=== PATIENT | male | born 1975 | race Caucasian/White ===

== ENCOUNTER 2017-03-08 21:55 | Emergency (ER) | payer SELFPAY ==
[2017-03-08] MEDS ORDERED: Lidocaine/EPINEPHrine/Tetracaine Soln 5 ML Each TOP ONE (22:11)
[2017-03-08] MEDS ORDERED: Silver Nitrate Applicator Each TOP ONE (22:11)
--- NOTE | 2017-03-08 22:18 | EDM.PDOC ---
ED HPI GENERAL MEDICAL PROBLEM - General Chief Complaint: ENT Problem Stated Complaint: SEVERE NOSE BLEED, [phone] Time Seen by Provider: 03/08/17 22:13 Source of Information: Reports: Patient History Limitations: Reports: No Limitations - History of Present Illness INITIAL COMMENTS - FREE TEXT/NARRATIVE: states nose been bleeding past hour but has now stopped. 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 - Related Data Allergies Allergy/AdvReac Type Severity Reaction Status Date / Time No Known Allergies Allergy Verified 03/08/17 22:00 Home Meds: Home Meds Ibuprofen [Motrin] 200 mg PO ASDIRECTED 03/08/17 [History] Past Medical History HEENT History: Reports: None Cardiovascular History: Reports: None Respiratory History: Reports: None Gastrointestinal History: Reports: None Genitourinary History: Reports: None Musculoskeletal History: Reports: None Neurological History: Reports: None Psychiatric History: Reports: None Endocrine/Metabolic History: Reports: None Hematologic History: Reports: None Immunologic History: Reports: None Oncologic (Cancer) History: Reports: None Dermatologic History: Reports: None Social & Family History - Tobacco Use Smoking Status *Q: Heavy Tobacco Smoker Years of Tobacco use: 20 Packs/Tins Daily: 1.5 - Alcohol Use Days Per Week of Alcohol Use: 1 Number of Drinks Per Day: 2 Total Drinks Per Week: 2 - Recreational Drug Use Recreational Drug Use: No ED ROS ENT - Review of Systems Review Of Systems: ROS reveals no pertinent complaints other than HPI. ED EXAM, ENT - Physical Exam Exam: See Below Exam Limited By: No Limitations General Appearance: Alert, WD/WN, Anxious Nose: Dried Blood, Injected Turbinates. No: Active Bleeding Mouth/Throat: Normal Inspection, Normal Oropharynx Head: Atraumatic Neck: Non-Tender, Full Range of Motion Respiratory/Chest: No Respiratory Distress Cardiovascular: Regular Rate, Rhythm GI/Abdominal: Soft, Non-Tender Neurological: Alert, Oriented, Normal Cognition, Normal Gait, No Motor/Sensory Deficits Psychiatric: Anxious Skin: Warm, Dry, Normal Color Lymphatic: No Adenopathy ED ENT PROCEDURES - Epistaxis Procedure Indication: Uncontrolled Recent anticoagulants/antiplatlets: No Uncontrolled HTN: No Site of bleeding: Right Nare, Left Nare, Anterior Clearing of clots: Other Topical Meds: Other (LET) Ice pack to area: No Chemical cautery: Silver Nitrate Topical Anterior Packing: Other Electrical cautery: Other (silver nitrate) Post cautery: Other Complications: No Course - Vital Signs Last Recorded V/S: Last Vital Signs Temp 36.8 C 03/08/17 21:59 Pulse 87 03/08/17 21:59 Resp 20 03/08/17 21:59 BP 191/116 H 03/08/17 21:59 Pulse Ox 98 03/08/17 21:59 - Orders/Labs/Meds Meds: Medications Discontinued Medications Generic Name Dose Route Start Last Admin Trade Name Cecil PRN Reason Stop Dose Admin Hydrocodone Bitart/Acetaminophen 1 tab 03/08/17 22:42 03/08/17 22:46 [place] 325-10 Mg PO 03/08/17 22:43 1 tab ONETIME ONE Administration Lidocaine/Tetracaine 5 ml 03/08/17 22:11 03/08/17 22:24 Let Soln TOP 03/08/17 22:12 5 ml ONETIME ONE Administration Silver Nitrate 3 each 03/08/17 22:11 03/08/17 22:25 Silver Nitrate TOP 03/08/17 22:12 3 each ONETIME ONE Administration - Re-Assessments/Exams Free Text/Narrative Re-Assessment/Exam: 03/08/17 22:58 re-exam; s/p cautery feeling much better no further bleeding after 30 minutes Departure - Departure Time of Disposition: 22:58 Disposition: Home, Self-Care 01 Condition: Good Clinical Impression: Epistaxis - Discharge Information Instructions: Nosebleed, [id number] Forms: ED Department Discharge Additional Instructions: 1) don't pick or blow nose 2) don't take aspirin or motrin for 1 week 3) recheck as needed
[2017-03-08] MEDS ORDERED: Acetaminophen/HYDROcodone 325-10 MG Tab PO ONE (22:42)
== END 2017-03-08 23:02 | disposition home or self-care (01) ==
LOC: DL.ED 21:55
DX: R04.0 Epistaxis (principal); F17.210 Nicotine dependence, cigarettes, uncomplicated
CPT/HCPCS: 30901; 99283; A9270

== ENCOUNTER 2017-03-08 23:15 | Emergency (ER) | payer SELFPAY ==
--- NOTE | 2017-03-08 23:52 | EDM.PDOC ---
ED HPI GENERAL MEDICAL PROBLEM - General Chief Complaint: ENT Problem Stated Complaint: NOSEBLEED Time Seen by Provider: 03/08/17 23:49 Source of Information: Reports: Patient History Limitations: Reports: No Limitations - History of Present Illness INITIAL COMMENTS - FREE TEXT/NARRATIVE: just got into truck to leave and rebleed Nare Pain Score (Numeric/FACES): 7 - Related Data Allergies Allergy/AdvReac Type Severity Reaction Status Date / Time No Known Allergies Allergy Verified 03/08/17 23:15 Home Meds: Home Meds Ibuprofen [Motrin] 200 mg PO ASDIRECTED 03/08/17 [History] Past Medical History HEENT History: Reports: None Cardiovascular History: Reports: None Respiratory History: Reports: None Gastrointestinal History: Reports: None Genitourinary History: Reports: None Musculoskeletal History: Reports: None Neurological History: Reports: None Psychiatric History: Reports: None Endocrine/Metabolic History: Reports: None Hematologic History: Reports: None Immunologic History: Reports: None Oncologic (Cancer) History: Reports: None Dermatologic History: Reports: None Social & Family History - Tobacco Use Smoking Status *Q: Heavy Tobacco Smoker Years of Tobacco use: 20 Packs/Tins Daily: 1.5 - Alcohol Use Days Per Week of Alcohol Use: 1 Number of Drinks Per Day: 2 Total Drinks Per Week: 2 - Recreational Drug Use Recreational Drug Use: No ED ROS ENT - Review of Systems Review Of Systems: ROS reveals no pertinent complaints other than HPI. ED EXAM, ENT - Physical Exam Exam: See Below Exam Limited By: No Limitations General Appearance: Alert, WD/WN, Mild Distress, Other (nose bleed) Nose: Active Bleeding Mouth/Throat: Normal Inspection, Normal Oropharynx Head: Atraumatic Neck: Non-Tender, Full Range of Motion Respiratory/Chest: No Respiratory Distress Cardiovascular: Regular Rate, Rhythm GI/Abdominal: Soft, Non-Tender Neurological: Alert, Oriented, Normal Cognition, Normal Gait, No Motor/Sensory Deficits Psychiatric: Anxious Skin: Warm, Dry, Normal Color Lymphatic: No Adenopathy Course - Vital Signs Last Recorded V/S: Last Vital Signs Temp Pulse Resp 18 03/08/17 23:15 BP Pulse Ox Departure - Departure Time of Disposition: 23:51 Disposition: Home, Self-Care 01 Condition: Good Clinical Impression: Epistaxis - Discharge Information Forms: ED Department Discharge Additional Instructions: 1) have the nose packing remove tomorrow 2) recheck as need 3) avoid bending and straining
== END 2017-03-08 23:56 | disposition home or self-care (01) ==
LOC: DL.ED 23:15
DX: R04.0 Epistaxis (principal); F17.210 Nicotine dependence, cigarettes, uncomplicated
CPT/HCPCS: 99282

== ENCOUNTER 2017-03-09 14:37 | Emergency (ER) | payer SELFPAY ==
--- NOTE | 2017-03-09 16:14 | EDM.PDOC ---
ED HPI GENERAL MEDICAL PROBLEM - General Chief Complaint: ENT Problem Stated Complaint: EPISTAXIS [phone] Time Seen by Provider: 03/09/17 15:55 Source of Information: Reports: Patient History Limitations: Reports: No Limitations - History of Present Illness INITIAL COMMENTS - FREE TEXT/NARRATIVE: This 41 yo male patient reports to the ED due to having a bloody nose yesterday treated in the ED by Dr. Darling. The patient had nasal packing placed yesterday and returns to the ED for removal of the packing. Onset: Today Onset Date: 03/08/17 Duration: Constant Location: Reports: Face Quality: Reports: Ache, Dull Severity: Mild Improves with: Reports: None Worsens with: Reports: None Associated Symptoms: Reports: No Other Symptoms Bilateral Nare Pain Score (Numeric/FACES): 3 - Related Data Allergies Allergy/AdvReac Type Severity Reaction Status Date / Time No Known Allergies Allergy Verified 03/08/17 23:15 Home Meds: Home Meds Ibuprofen [Motrin] 200 mg PO ASDIRECTED 03/08/17 [History] Past Medical History HEENT History: Reports: None Cardiovascular History: Reports: None Respiratory History: Reports: None Gastrointestinal History: Reports: None Genitourinary History: Reports: None Musculoskeletal History: Reports: None Neurological History: Reports: None Psychiatric History: Reports: None Endocrine/Metabolic History: Reports: None Hematologic History: Reports: None Immunologic History: Reports: None Oncologic (Cancer) History: Reports: None Dermatologic History: Reports: None Social & Family History - Tobacco Use Smoking Status *Q: Current Every Day Smoker Years of Tobacco use: 40 Packs/Tins Daily: 1 - Caffeine Use Caffeine Use: Reports: Energy Drinks, Soda - Alcohol Use Days Per Week of Alcohol Use: 1 Number of Drinks Per Day: 3 Total Drinks Per Week: 3 - Recreational Drug Use Recreational Drug Use: No ED ROS ENT - Review of Systems Review Of Systems: ROS reveals no pertinent complaints other than HPI. ED EXAM, ENT - Physical Exam Exam: See Below Exam Limited By: No Limitations General Appearance: Alert, WD/WN, Mild Distress Eye Exam: Bilateral Eye: EOMI, Normal Inspection, PERRL Ears: Normal External Exam, Normal Canal, Hearing Grossly Normal, Normal TMs Nose: Other (nasal packing was removed during visit. The patient has dried blood in bilateral nares. ) Mouth/Throat: Normal Inspection, Normal Gums, Normal Lips, Normal Oropharynx, Normal Teeth Head: Atraumatic, Normocephalic Neck: Normal Inspection, Supple, Non-Tender, Full Range of Motion Respiratory/Chest: No Respiratory Distress, Lungs Clear, Normal Breath Sounds, No Accessory Muscle Use, Chest Non-Tender Cardiovascular: Normal Peripheral Pulses, Regular Rate, Rhythm, No Edema, No Gallop, No JVD, No Murmur, No Rub GI/Abdominal: Normal Bowel Sounds, Soft, Non-Tender, No Organomegaly, No Distention, No Abnormal Bruit, No Mass (Male) Exam: Deferred Rectal (Males) Exam: Deferred Back: Normal Inspection, Full Range of Motion Extremities: Normal Inspection, Normal Range of Motion, Non-Tender, No Pedal Edema, Normal Capillary Refill Neurological: Alert, Oriented, CN II-XII Intact, Normal Cognition, Normal Gait, Normal Reflexes, No Motor/Sensory Deficits Psychiatric: Normal Affect, Normal Mood Skin: Warm, Dry, Intact, Normal Color, No Rash Lymphatic: No Adenopathy Course - Vital Signs Last Recorded V/S: Last Vital Signs Temp 36.6 C 03/09/17 15:12 Pulse 79 03/09/17 15:12 Resp 16 03/09/17 15:12 BP 184/118 H 03/09/17 15:12 Pulse Ox 98 03/09/17 15:12 Departure - Departure Time of Disposition: 16:11 Disposition: Home, Self-Care 01 Condition: Good Clinical Impression: Epistaxis - Discharge Information Instructions: Nosebleed, [id number] Care Plan Goals: The patient was advised of the examination results during the visit. The patient was advised to apply Aquaphor 2 times per day to increase moisture in her nose. The patient should avoid blowing his nose over the next 24-48 hours. If the patient has any additional symptoms or concerns, the patient should follow-up with his primary care facility or return to the emergency department.
== END 2017-03-09 16:26 | disposition home or self-care (01) ==
LOC: DL.ED 14:37
DX: R04.0 Epistaxis (principal); F17.210 Nicotine dependence, cigarettes, uncomplicated
CPT/HCPCS: 99282